=== PATIENT | female | born 1985 | race Caucasian/White ===

== ENCOUNTER 2021-01-13 09:15 | Outpatient (REF) | payer OTHER, SELFPAY ==
[2021-01-13 10:48] LABS: Appearance Urine CLEAR; Color Urine YELLOW; Glucose Urine UA NEG (NEG); Leukocyte Esterase Urine NEG (NEG); Nitrite Urine NEG (NEG); PH 5.5 (5.0-8.0); Urine Blood NEG (NEG); Urine Ketones NEG (NEG); Urine Protein NEG (NEG-TRACE)
== END 2021-01-13 09:16 | disposition home or self-care (01) ==
LOC: HO.LAB 09:15
PROVIDERS: PCP Internal Medicine; Visit Provider Internal Medicine
DX: R30.9 Painful micturition, unspecified (principal)
CPT/HCPCS: 81003

== ENCOUNTER 2021-07-12 09:03 | Outpatient (REF) | payer OTHER, SELFPAY ==
--- NOTE | ~2021-07-12 | XR_ITS ---
EXAMINATION: XR HAND, LEFT CLINICAL INFORMATION: Pain in left hand. COMPARISON: None. TECHNIQUE: PA, lateral, and oblique views of the left hand. FINDINGS: There is subtle lucency seen along the distal end of proximal phalanx 1st digit, likely a prominent vascular groove. No fracture or dislocation seen. There is minimal soft tissue swelling 1st digit at the PIP joint. No bony erosive changes. XR/XR hand LT min 3V IMPRESSION: Prominent vascular groove this length proximal phalanx 1st digit. However, patient has mild soft tissue swelling along the PIP joint. No obvious fracture visualized.
== END 2021-07-12 09:04 | disposition home or self-care (01) ==
LOC: HO.HOSX 09:03
PROVIDERS: Visit Provider Orthopaedic Surgery
DX: R22.32 Localized swelling, mass and lump, left upper limb (principal)
CPT/HCPCS: 73130; 99202

== ENCOUNTER → 2021-08-04 08:05 | Day surgery (SDC) | payer OTHER, SELFPAY ==
[2021-08-04 08:25] VITALS: BMI 31.8
[2021-08-04 08:26] LABS: UPreg QC Valid YES; Urine Pregnancy NEGATIVE (NEGATIVE)
[2021-08-04 08:27] LABS: Glucose, Whole Blood 98 mg/dL (60-115)
[2021-08-04 08:37] VITALS: BP 134/81; PULSE 80; RESP 16; TEMP 36.9; O2SAT 97
--- NOTE | 2021-08-04 09:09 | PC.NURSE ---
decision s/p gum chewing to contemplate surgery with general anesthesia with po bacitra, ultim d/c & reschedule
== END ==
PROVIDERS: Nurse Practitioner; PCP Internal Medicine; Visit Provider Orthopaedic Surgery
DX: R22.32 Localized swelling, mass and lump, left upper limb (principal); Z53.09 Procedure and treatment not carried out because of other contraindication; M79.642 Pain in left hand; E11.9 Type 2 diabetes mellitus without complications; F33.0 Major depressive disorder, recurrent, mild
CPT/HCPCS: 81025; 82947

== ENCOUNTER 2021-08-18 05:44 | Day surgery (SDC) | payer OTHER, SELFPAY ==
[2021-08-11 15:26] VITALS: BMI 33.1
--- NOTE | 2021-08-17 08:53 | HO.ANESPROP2 ---
Documented by User: Swati Riggs NP 08/17/21 08:54 HPI - Anesthesia Eval Consult details Narrative: 36yo F for Left Excision Thumb Mass biopsy PMFSH Active Problems Active Problems: All Active Problems (Updated 06/08/21 @ 17:48 by Sandra Mcclendon MD) Fatigue (Acute) Mass of left hand (Acute) Class 1 obesity with body mass index (BMI) of 33.0 to 33.9 in adult (Acute) Mild recurrent major depression (Acute) Physical exam (Acute) Diabetes mellitus (Acute) Past Medical History Medical History Class 1 obesity with body mass index (BMI) of 33.0 to 33.9 in adult Diabetes mellitus Fatigue Mass of left hand Mild recurrent major depression Physical exam Family History Family History Father Medical history unknown Mother Diabetes Stroke Sister Asthma Maternal Grandmother Diabetes Paternal Grandmother Lung cancer Family/Other Mental health disorder Surgical History Surgical History H/O LEEP History of removal of ovarian cyst Social History Social History (Updated 07/12/21 @ 11:27 by SUSHMA Darby) Housing: Apartment Alcohol intake: never Patient Tobacco Use Status: Current everyday Tobacco user Tobacco use type: Cigarette Cigarettes Per Day: 10 e-Cigarette/Vaping Use: Never Used Second Hand Smoke Exposure: No Are you DNR?: No Advance Directives: No Advance Directives Information Provided: Yes Recently lost weight without trying: No service: No Current occupational status: unemployed 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 Cognitive needs: No Hearing needs: No Vision needs: Yes Meds Allergies Allergy/AdvReac Type Severity Reaction Status Date / Time No Known Allergies Allergy Verified 07/12/21 11:11 Home Medications Medication Instructions Recorded Confirmed Last Taken Type paroxetine HCl 20 mg tablet 20 mg PO QAM 06/08/21 08/04/21 08/04/21 History Exam Exam Date and Time: August 17, 2021 0853 Height,Weight and Vital Signs: Height 5 ft 3 in Weight 84.822 kg Assessment and Plan Assessment Anesthesia Assessment: Chart Reviewed Documented by User: Andrew Joshi MD 08/18/21 08:31 PMFSH Past Medical History Medical History Class 1 obesity with body mass index (BMI) of 33.0 to 33.9 in adult Diabetes mellitus Fatigue Mass of left hand Mild recurrent major depression Physical exam Family History Family History Father Medical history unknown Mother Diabetes Stroke Sister Asthma Maternal Grandmother Diabetes Paternal Grandmother Lung cancer Family/Other Mental health disorder Family history of problems with anesthesia: No Surgical History Surgical History H/O LEEP History of removal of ovarian cyst History of Problems with Anesthesia: No Social History Social History (Updated 07/12/21 @ 11:27 by SUSHMA Darby) Housing: Apartment Alcohol intake: never Patient Tobacco Use Status: Current everyday Tobacco user Tobacco use type: Cigarette Cigarettes Per Day: 10 e-Cigarette/Vaping Use: Never Used Second Hand Smoke Exposure: No Are you DNR?: No Advance Directives: No Advance Directives Information Provided: Yes Recently lost weight without trying: No service: No Current occupational status: unemployed 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 Cognitive needs: No Hearing needs: No Vision needs: Yes Meds Allergies Allergy/AdvReac Type Severity Reaction Status Date / Time No Known Allergies Allergy Verified 07/12/21 11:11 Home Medications Medication Instructions Recorded Confirmed Last Taken Type paroxetine HCl 20 mg tablet 20 mg PO QAM 06/08/21 08/04/21 08/04/21 History Exam Airway Mallampati Class: II TM Dist: >3cm Neck ROM: Full Loose/Missing/Broken Teeth: No Assessment and Plan Final Anesthetic Review Family History of Problems with Anesthesia: No History of Problems with Anesthesia: No NPO: Yes ASA Class: II Final Preanesthetic Review: No Changes in Pt Med Stat, Meds/Allgs Chart Reviewed, Consent Obtained/Reviewed and Anes Risks/Benef Reviewed Patient Risk: Low Procedure Risk: Low Anesthetic Plan Anesthetic Plan: GA Disposition: Standard PACU
[2021-08-18 06:02] VITALS: BP 138/91; PULSE 83; RESP 20; TEMP 36.4; O2SAT 97
[2021-08-18 06:12] LABS: Glucose, Whole Blood 95 mg/dL (60-115)
--- NOTE | 2021-08-18 06:17 | PC.NURSE ---
LS CLEAR PT ON HER MENSES
[2021-08-18 06:26] LABS: UPreg QC Valid YES; Urine Pregnancy NEGATIVE (NEGATIVE)
[2021-08-18] MEDS: Lactated Ringers 1,000 ML 100 ML IVCONT (06:33)
--- NOTE | 2021-08-18 07:41 | MHC.SHP ---
Pre-Procedural Eval Section A Date of Service: 08/18/21 The patient is an INPATIENT: No Changes since office visit: No Cold of Flu in the past 2 weeks, No New Medical Problems, No Changes in Medication and No Patient answered all questions The History & Physical has been completed within 30 days and I have reviewed it.: Yes Section B Chief Complaint: thumb mass Allergies: Allergies Allergy/AdvReac Type Severity Reaction Status Date / Time No Known Allergies Allergy Verified 07/12/21 11:11 Plan I have reviewed the history and physical and performed a pertinent physical examination on my patient. No changes have occurred unless specified.
--- NOTE | 2021-08-18 07:41 | W.PM.OPN ---
Operative Note Operative Note Date of Service: 08/18/21 Narrative: Operative Note Narrative: Preop diagnosis: 1. Left thumb soft tissue mass Postop diagnosis: Same Procedure: 1. Left thumb soft tissue mass excisional biopsy Surgeon: Isa Banuelos MD Anesthesia: General Anesthesia Findings: a aguilar yellow multi lobular soft tissue mass measuring approximately 1.5 cm x 1.8 cm by 6 mm was removed from the volar aspect of the patient's left thumb Implants: none Tourniquet time: Eighteen minutes EBL: 5.0 ml Specimen: left thumb soft tissue mass Drains: None Complications: None Disposition: Brought to the recovery room in stable condition Plan: Follow-up in 10-14 days for wound check, suture removal and to check pathology Indications: The patient is a 36 year old woman with a left thumb soft tissue mass . The risks and benefits of operative treatment, including but not limited to risk of damage to blood vessels, nerves, tendons, infection, recurrence, persistent pain or numbness, incomplete resolution of preoperative symptoms, or need for further surgery were discussed with the patient and they wished to proceed with surgery. Procedure: Once consent was obtained patient was brought back to the operating suite and placed in the operating table in a supine position. . Perioperative antibiotics and anesthesia was administered by the anesthesia team. A tourniquet was applied to the proximal aspect of the left upper extremity and the limb was prepped and draped in a standard surgical fashion. The limb was elevated exsanguinated with Esmarch bandage and the tourniquet inflated to 250 mm of mercury for a total tourniquet time of 18 minutes. a José type incision was made over the volar aspect of the patient's left thumb. The incision was made through the skin to the subcutaneous tissues using a 15. Blade. I then carefully dissected down to the level of the soft tissue mass using tenotomy scissors. the mass was yellow and aguilar in color and multi lobular with a PN appearance consistent with a giant cell tumor. It measured approximately 1.5 cm x 1.8 cm x 6 mm appearing to come from the flexor tendon sheath and involving soft tissues over the volar aspect of the IP joint of the thumb and the pad of the thumb. The soft tissue mass was carefully mobilized from the surrounding soft tissues using tenotomy and iris scissors with care being taken to try and protect the neurovascular structures. The mass was then removed the patient and placed on the back table to be sent for histopathology. At this point the tourniquet was deflated and hemostasis obtained with a brief period of local pressure and bipolar electrocautery. The wound was copiously irrigated with normal saline. The skin edges were reapproximated with 5-0 nylon suture. A digital block was performed by infiltrating with some 1% lidocaine with epinephrine for postop pain control and a sterile dressing was applied. The patient appears to have tolerated the procedure well and with no complications. All digits were well vascularized conclusion of the case.
[2021-08-18 08:58] VITALS: BP 128/60; PULSE 87; RESP 14; TEMP 36.3; O2SAT 99
[2021-08-18 09:03] VITALS: BP 118/58; PULSE 84; RESP 20; O2SAT 99
[2021-08-18 09:08] VITALS: BP 120/69; PULSE 88; RESP 20; O2SAT 98
[2021-08-18 09:13] VITALS: BP 138/74; PULSE 88; RESP 20; O2SAT 99
[2021-08-18 09:28] VITALS: BP 147/90; PULSE 83; RESP 20; TEMP 36.3; O2SAT 99
== END 2021-08-18 09:53 | disposition home or self-care (01) ==
PROVIDERS: Nurse Practitioner; PCP Internal Medicine; Visit Provider Orthopaedic Surgery
PROC: (CPT 26111; principal; 2021-08-18 07:30)
DX: D48.1 Neoplasm of uncertain behavior of connective and other soft tissue (principal); M79.9 Soft tissue disorder, unspecified; E11.9 Type 2 diabetes mellitus without complications; F33.0 Major depressive disorder, recurrent, mild; E66.9 Obesity, unspecified; Z68.33 Body mass index [BMI] 33.0-33.9, adult; Z79.84 Long term (current) use of oral hypoglycemic drugs; F17.210 Nicotine dependence, cigarettes, uncomplicated
CPT/HCPCS: 26111; 81025; 82947; 88305; J0171; J0690; J1885; J2405; J2795; J3010

== ENCOUNTER 2022-03-29 14:37 | Outpatient (REF) | payer OTHER, SELFPAY ==
[2022-03-29 15:52] LABS: Alanine Aminotransferase 15 U/L (0-31); Albumin Level 3.6 g/dL (3.5-5.0); Alkaline Phosphatase 73 U/L (39-117); Anion Gap 15 (12-20); Aspartate Amino Transferase 13 U/L (5-31); Bilirubin Total 0.4 mg/dL (0.0-1.0); Blood Urea Nitrogen 6 mg/dL (9-16); Calcium 9.2 mg/dL (8.4-10.2); Carbon Dioxide 21 mmol/L (22-29); Chloride 106 mmol/L (96-108); Cholesterol 250 mg/dL; Estimated Glomerular Filt Rate > 60; Glucose Fasting 81 mg/dL (60-99); HDL Cholesterol 50 mg/dL; LDL Cholesterol Calculated 159 mg/dl; Potassium 4.3 mmol/L (3.3-5.1); Sodium 138 mmol/L (135-145); Total Protein 6.8 g/dL (6.5-8.0); Triglycerides 207 mg/dL
[2022-03-29 18:32] LABS: Microalbum/Creatinine Ratio Ur 5.8 ug/mg cr
== END 2022-03-29 14:38 | disposition home or self-care (01) ==
LOC: HO.LAB 14:37
PROVIDERS: PCP Internal Medicine; Visit Provider Internal Medicine
DX: E11.9 Type 2 diabetes mellitus without complications (principal); E55.9 Vitamin D deficiency, unspecified; E78.5 Hyperlipidemia, unspecified
CPT/HCPCS: 36415; 80053; 80061; 82043; 82306

== ENCOUNTER 2023-04-06 08:44 | Outpatient (REF) | payer OTHER, SELFPAY ==
[2023-04-06 10:03] LABS: Alanine Aminotransferase 18 U/L (0-31); Alkaline Phosphatase 50 U/L (39-117); Anion Gap 10 (12-20); Aspartate Amino Transferase 12 U/L (5-31); Bilirubin Total 0.3 mg/dL (0.0-1.0); Blood Urea Nitrogen 12 mg/dL (9-16); Calcium 9.3 mg/dL (8.4-10.2); Carbon Dioxide 23 mmol/L (22-29); Chloride 111 mmol/L (96-108); Cholesterol 140 mg/dL (<200); Estimated Glomerular Filt Rate > 60; Glucose Fasting 141 mg/dL (60-99); HDL Cholesterol 48 mg/dL (>40); LDL Cholesterol Calculated 70 mg/dL (<100); Potassium 4.1 mmol/L (3.3-5.1); Sodium 140 mmol/L (135-145); Total Protein 7.1 g/dL (6.5-8.0); Triglycerides 112 mg/dL (<150)
[2023-04-06 10:19] LABS: Vitamin D 25-OH Total 34.7 ng/mL (>30)
== END 2023-04-06 08:45 | disposition home or self-care (01) ==
LOC: HO.LAB 08:44
PROVIDERS: PCP Internal Medicine; Visit Provider Internal Medicine
DX: E78.5 Hyperlipidemia, unspecified (principal); E11.9 Type 2 diabetes mellitus without complications; E55.9 Vitamin D deficiency, unspecified
CPT/HCPCS: 36415; 80053; 80061; 82043; 82306; 82570

== ENCOUNTER 2023-10-23 15:47 | Outpatient (AMB) | payer OTHER, SELFPAY ==
[2023-10-23 15:51] VITALS: BP 126/80; BMI 27.5
--- NOTE | 2023-10-23 15:51 | A.OFFPC_ITS ---
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 Accompanied by: Self / Same As Patient Allergies No Known Allergies Allergy (Verified 10/23/23 16:17) Medication List - Last Reconciled 10/23/23 by Sandra Mcclendon MD blood sugar diagnostic (FreeStyle Test strips) Use 1 test strip once a day lancets (BD Ultra Fine Lancets) test daily metformin 1,000 mg PO BID 90 days nicotine (polacrilex) 4 mg buccal Q2H PRN 30 days Tobacco use date assessed: 10/23/23 Dental Screening Dental Screen Date: 10/23/23 Did you have a dental visit in the last 12 months?: Yes Did you have a dental problem in the last 6 months where you did not have access to dental care?: No Was dental information given to patient?: Patient has dentist HPI HPI Comments History of Present Illness Details This is a 38-year-old female with mild recurrent major depression, diabetes mellitus type 2 and low vitamin-D that comes today for follow-up on her conditions. Depression has been in remission. A1c within goal. On vitamin-D supplements for her low vitamin-D. Denies any chest pain or shortness on breath. Has a cough that started a week ago but is improving. No fever. Tested negative for COVID-19. PFSH Medical History (Updated 10/23/23 @ 17:26 by Sandra Mcclendon MD) Fatigue Mass of left hand Class 1 obesity with body mass index (BMI) of 33.0 to 33.9 in adult Mild recurrent major depression Physical exam Diabetes mellitus Surgical History History of root canal procedure History of removal of ovarian cyst H/O LEEP Family History Father Medical history unknown Mother Diabetes Stroke Sister Asthma Maternal Grandmother Diabetes Paternal Grandmother Lung cancer Family/Other Mental health disorder Social History Housing: Apartment Alcohol intake: never Patient Tobacco Use Status: Former Tobacco user Tobacco use type: Cigarette Cigarettes Per Day: 10 e-Cigarette/Vaping Use: Never Used Second Hand Smoke Exposure: No service: No Current occupational status: unemployed 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 1. Little interest or pleasure in doing things: not at all 2. Feeling down, depressed, or hopeless: not at all 3. Trouble falling or staying asleep, or sleeping too much: not at all 4. Feeling tired or having little energy: not at all 5. Poor appetite or overeating: not at all 6. Feeling bad about yourself - or that you are a failure or have let yourself or your family down: not at all 7. Trouble concentrating on things, such as reading the newspaper or watching television: not at all 8. Moving or speaking so slowly that other people could have noticed. Or the opposite - being so fidgety or restless that you have been moving around a lot more than usual: not at all 9. Thoughts that you would be better off or of hurting yourself in some way : not at all Total score: 0 Depression Screening Interpretation: Negative Depression Screening Done: Yes 86907 - PHQ-9 Billing: Yes Source: Developed by Drs. Romeo Arrington, Suzanne Alcala, Chetan Salomon and colleagues, with an educational megan from [employer]. Thrive Questionnaire Date Thrive assessed: 10/23/23 I am a: Patient What is your living situation today?: I have a steady place to live Within the past 12 months, did the food you bought not last and you didn't have the money to get more?: Never true Within the past 12 months, did you worry whether your food would run out before you got money to buy more?: Never true Do you have trouble paying for medicines?: No Do you have trouble getting transportation to medical appointments?: No Do you have trouble paying your heating and electricity bill?: No Do you have trouble taking care of your child, family member or friend?: No Do you have trouble with day-to-day activities such as bathing, preparing meals, shopping, managing finances, etc.?: No Are you currently unemployed and looking for a job?: No Are you interested in more education?: No Please select the resources that you would like help with: None Currently or been in a relationship where the following occur: No concerns reported THRIVE Score: 0 AUDIT C Alcohol Use Questionnaire (AUDIT-C) 1. How often do you have a drink containing alcohol?: Never Total Score: 0 Score Reviewed/Action Taken: No ANGELO-7 AMB Questionnaire ANGELO-7 Date ANGELO - 7 assessed: 10/23/23 Feeling nervous, anxious, or on edge: 0 = Not at all Not being able to stop or control worryin = Not at all Worrying too much about different things: 0 = Not at all Trouble relaxin = Not at all Being so restless that it is hard to sit still: 0 = Not at all Becoming easily annoyed or irritable: 0 = Not at all Feeling afraid as if something awful might happen: 0 = Not at all Total ANGELO-7 score (0-4 normal; 5-9 mild; 10-14 moderate; 15-21 severe): 0 Source: Developed by Drs. Romeo Arrington, Suzanne Alcala, Chetan Salomon and colleagues, with an educational megan from [employer]. ANGELO-7 Assessment Billing ANGELO-7 Assessment Tool: ANGELO-7 Assessment 13107 Review of Systems Const All systems reviewed & are unremarkable except as noted in HPI and below Card Denies chest pain at rest, Denies chest pain with activity, Denies edema, Denies irregular heart rhythm, Denies claudication, Denies dyspnea, Denies dyspnea on exertion, Denies orthopnea, Denies paroxysmal nocturnal dyspnea and Denies slow heart rate Resp Denies cough, Denies dyspnea and Denies dyspnea on exertion GI Denies abdominal pain, Denies change in bowel habits, Denies excessive flatus, Denies nausea and Denies vomiting Physical exam (Primary Care) Vital Signs: Last Vital Signs BP 126/80 10/23/23 15:51 BMI result Body Mass Index 27.5 Tobacco/Smoking Status: Tobacco use Status Tobacco use date assessed 10/23/23 10/23/23 16:00 Patient Tobacco Use Status Former Tobacco user 10/23/23 16:00 Tobacco use type Cigarette 10/23/23 16:00 e-Cigarette/Vaping Use Never Used 10/23/23 16:00 PHQ-9: PHQ-9 Score PHQ-9: Total score 0 10/23/23 17:42 Depression Screening Interpretation: Negative Thrive Assessment: Date of Thrive Assessment Date Thrive assessed 10/23/23 10/23/23 16:00 Currently or been in a relationship where the following occur: No concerns reported Resp Effort & Inspection: normal respiratory effort Auscultation: clear to auscultation bilaterally Cardio Jugular venous distension: no JVD Rate: regular rate Rhythm: regular rhythm Heart sounds: S1 normal heart sound present and S2 normal heart sound present Extrem General: Yes full ROM Results AMB Hemoglobin A1c AMB Hemoglobin A1c 6.2 % Last Edit by JAMARI Marcus on 10/23/23 16:0 2 Results Reviewed Results Reviewed: Laboratory Last Values Hgb A1c (Clinic) 6.2 % (4.0-6.0) H 10/23/23 15:51 Assessment and Plan Assessment & Plan (1) Diabetes mellitus: Code(s): E11.9 - Type 2 diabetes mellitus without complications Qualifiers: Diabetes mellitus complication status: without complication 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 A1c goal is equal or less than 7%. (2) Mild recurrent major depression: Code(s): F33.0 - Major depressive disorder, recurrent, mild Plan: In remission. (3) Hypovitaminosis D: Code(s): E55.9 - Vitamin D deficiency, unspecified Plan: Continue vitamin-D supplements. Orders: Orders AMB Hemoglobin A1c Today E11.9 - Type 2 diabetes mellitus without complications Lipid Panel 4 Months E78.5 - Hyperlipidemia, unspecified Microalbumin, Random (w Creat) 4 Months R80.9 - Proteinuria, unspecified Comprehensive [place]. 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
== END 2023-10-23 16:28 | disposition home or self-care (01) ==
PROVIDERS: PCP Internal Medicine; Visit Provider Internal Medicine
DX: E11.9 Type 2 diabetes mellitus without complications (principal); F33.0 Major depressive disorder, recurrent, mild; E55.9 Vitamin D deficiency, unspecified

== ENCOUNTER → 2023-10-23 15:47 | Outpatient (BNVA) | payer OTHER, SELFPAY | PROVIDERS: PCP Internal Medicine; Visit Provider Internal Medicine | DX: E11.9 Type 2 diabetes mellitus without complications (principal); F33.0 Major depressive disorder, recurrent, mild; E55.9 Vitamin D deficiency, unspecified; Z79.84 Long term (current) use of oral hypoglycemic drugs | CPT/HCPCS: 83036; 96127; 99212 ==

== ENCOUNTER 2024-04-23 16:13 | Outpatient (AMB) | payer OTHER, SELFPAY ==
--- NOTE | 2024-04-23 16:16 | A.OFFPC_ITS ---
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 Accompanied by: Self / Same As Patient Allergies No Known Allergies Allergy (Verified 04/23/24 16:22) Medication List - Last Reconciled 04/23/24 by Sandra Mcclendon MD blood sugar diagnostic (FreeStyle Test strips) Use 1 test strip once a day lancets (BD Ultra Fine Lancets) test daily metformin 1,000 mg PO BID 90 days nicotine (polacrilex) 4 mg buccal Q2H PRN 30 days Tobacco use date assessed: 04/23/24 Dental Screening Dental Screen Date: 04/23/24 Did you have a dental visit in the last 12 months?: Yes Did you have a dental problem in the last 6 months where you did not have access to dental care?: No Was dental information given to patient?: Patient has dentist HPI HPI Comments History of Present Illness Details The patient is a 39-year-old female presenting for a physical examination. She previously had an elevated hemoglobin A1c of 6.2, which improved to 5.9, indicating better control of her diabetes. She is on metformin therapy, reporting satisfactory results with recent blood tests, and does not currently report diabetes-related symptoms. Nicotine dependence is evident, with the patient noting relapse after initially attempting to stop smoking using nicotine gum. She is interested in quitting again. The patient has a surgical history that includes delivery, wisdom tooth extraction, ovarian cyst removal, and lipoma removal. Her family history is significant for diabetes and stroke on her mother's side and cervical stenosis and knee surgeries on her father's side. Her mother is otherwise in good health currently, and familial diabetes is well-managed. - Discussion about ordering a mammogram as the patient has not had one. - Pap smear completed in 2022 with resul ts indicating HPV-negative status. - Tetanus vaccination status reviewed; n ext vaccine due in 2028. - Encouraged smoking cessation and discu ssed nicotine replacement therapy options. - Monitoring of hemoglobin A1c levels as part of diabetes management. [facility] Medical History Fatigue Mass of left hand Class 1 obesity with body mass index (BMI) of 33.0 to 33.9 in adult Mild recurrent major depression Physical exam Diabetes mellitus Surgical History History of wisdom tooth extraction History of root canal procedure History of removal of ovarian cyst H/O LEEP Family History Father Medical history unknown Mother Diabetes Stroke Sister Asthma Maternal Grandmother Diabetes Paternal Grandmother Lung cancer Family/Other Mental health disorder Social History (Updated 04/23/24 @ 16:40 by Sandra Mcclendon MD) Housing: Apartment Alcohol intake: never Patient Tobacco Use Status: Current everyday Tobacco user Tobacco use type: Cigarette Cigarettes Per Day: 10 e-Cigarette/Vaping Use: Never Used Second Hand Smoke Exposure: No service: No Current occupational status: unemployed 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 1. Little interest or pleasure in doing things: not at all 2. Feeling down, depressed, or hopeless: not at all 3. Trouble falling or staying asleep, or sleeping too much: several days 4. Feeling tired or having little energy: several days 5. Poor appetite or overeating: several days 6. Feeling bad about yourself - or that you are a failure or have let yourself or your family down: not at all 7. Trouble concentrating on things, such as reading the newspaper or watching television: not at all 8. Moving or speaking so slowly that other people could have noticed. Or the opposite - being so fidgety or restless that you have been moving around a lot more than usual: not at all 9. Thoughts that you would be better off or of hurting yourself in some way: not at all Total score: 3 Depression Screening Interpretation: Positive Depression Screening Follow-up: Existing condition and Follow-up Visit Requested Depression Screening Done: Yes 33577 - PHQ-9 Billing: Yes Source: Developed by Drs. Romeo Arrington, Suzanne Alcala, Chetan Salomon and colleagues, with an educational megan from [employer]. Thrive Questionnaire Date Thrive assessed: 04/23/24 I am a: Patient What is your living situation today?: I have a steady place to live Within the past 12 months, did the food you bought not last and you didn't have the money to get more?: Never true Within the past 12 months, did you worry whether your food would run out before you got money to buy more?: Never true Do you have trouble paying for medicines?: No Do you have trouble getting transportation to medical appointments?: No Do you have trouble paying your heating and electricity bill?: No Do you have trouble taking care of your child, family member or friend?: No Do you have trouble with day-to-day activities such as bathing, preparing meals, shopping, managing finances, etc.?: No Are you currently unemployed and looking for a job?: I choose not to answer this question Are you interested in more education?: I choose not to answer this question Please select the resources that you would like help with: None Currently or been in a relationship where the following occur: I choose not to answer THRIVE Score: 0 AUDIT C Alcohol Use Questionnaire (AUDIT-C) 1. How often do you have a drink containing alcohol?: Never Total Score: 0 Score Reviewed/Action Taken: No ANGELO-7 AMB Questionnaire ANGELO-7 Date ANGELO - 7 assessed: 04/23/24 Feeling nervous, anxious, or on edge: 0 = Not at all Not being able to stop or control worryin = Not at all Worrying too much about different things: 0 = Not at all Trouble relaxin = Not at all Being so restless that it is hard to sit still: 0 = Not at all Becoming easily annoyed or irritable: 0 = Not at all Feeling afraid as if something awful might happen: 0 = Not at all Total ANGELO-7 score (0-4 normal; 5-9 mild; 10-14 moderate; 15-21 severe): 0 Source: Developed by Drs. Romeo Arrington, Suzanne Alcala, Chetan Salomon and colleagues, with an educational megan from [employer]. ANGELO-7 Assessment Billing ANGELO-7 Assessment Tool: ANGELO-7 Assessment 16423 Review of Systems Const All systems reviewed & are unremarkable except as noted in HPI and below Card Denies chest pain at rest, Denies chest pain with activity, Denies edema, Denies irregular heart rhythm, Denies claudication, Denies orthopnea, Denies paroxysmal nocturnal dyspnea and Denies slow heart rate Physical exam (Primary Care) Vital Signs: Last Vital Signs BP 126/80 04/23/24 16:17 BMI result Body Mass Index 29.0 Tobacco/Smoking Status: Tobacco use Status Tobacco use date assessed 04/23/24 04/23/24 16:25 Patient Tobacco Use Status Current everyday Tobacco 04/23/24 16:40 Tobacco use type Cigarette 04/23/24 16:40 e-Cigarette/Vaping Use Never Used 04/23/24 16:40 PHQ-9: PHQ-9 Score PHQ-9: Total score 3 04/23/24 16:50 Depression Screening Interpretation: Positive Depression Screening Follow-up: Existing condition and Follow-up Visit Requested Thrive Assessment: Date of Thrive Assessment Date Thrive assessed 04/23/24 04/23/24 16:18 Currently or been in a relationship where the following occur: I choose not to answer HENMT Head: Yes normal to inspection, Yes normocephalic and Yes atraumatic Ears: external ears normal Eyes General: appearance normal, both eyes and all related structures Eyelids: Yes eyelids normal Conjunctivae: conjunctivae normal Neck Neck: Yes normal visual inspection and Yes supple Resp Effort & Inspection: normal respiratory effort Auscultation: clear to auscultation bilaterally Cardio Jugular venous distension: no JVD Rate: regular rate Rhythm: regular rhythm Heart sounds: S1 normal heart sound present and S2 normal heart sound present GI Inspection: Yes normal to inspection Palpation (GI): Soft to palpation and nontender Auscultation: normal bowel sounds Skin General skin exam: no rashes or lesions noted Neuro General: no focal motor deficits Extrem General: Yes full ROM Psych Appearance: grossly normal Results AMB Hemoglobin A1c AMB Hemoglobin A1c 5.9 % Last Edit by JAMRAI Marcus on 04/23/24 16:2 8 Results Reviewed Results Reviewed: Laboratory Last Values Hgb A1c (Clinic) 5.9 % (4.0-6.0) 04/23/24 16:26 Coding Level of Care Code Est Pt Prev Care 40-64y(78556) Diagnoses Physical exam Z00.00 Type 2 diabetes mellitus without complication, without long-term current use of insulin E11.9 Diabetes mellitus type: type 2 Diabetes mellitus intermediate insulin use: without ad terminal makeup operator use Diabetes mellitus complication status: without complication Mild recurrent major depression F33.0 Additional Codes ANGELO-7 Assessment Billing - ANGELO-7 Assessment Tool: ANGELO-7 Assessment 78484 ([id number]) PHQ-9 - 80068 - PHQ-9 Billing: Yes ([id number]) Time Spent (min) 31 Assessment & Plan Assessment & Plan (1) Physical exam: Code(s): Z00.00 - Encounter for general adult medical examination without abnormal findings Category: Medical (2) Diabetes mellitus: Code(s): E11.9 - Type 2 diabetes mellitus without complications Category: Medical Qualifiers: Diabetes mellitus type: type 2 Diabetes mellitus intermediate insulin use: without ad terminal makeup operator use Diabetes mellitus complication status: without complication Qualified Code(s): E11.9 - Type 2 diabetes mellitus without complications (3) Mild recurrent major depression: Code(s): F33.0 - Major depressive disorder, recurrent, mild Category: Medical Plan Monitoring of vitamin D levels will continue given history. Smoking cessation support was emphasized, and follow-up blood tests will be scheduled to evaluate overall health status further.: Patient was informed and verbally consented to the use of an ambient scribe for clinic note documentation during this visit. During the visit, I explained to the patient that her diabetes control has improved, as evidenced by the lowered hemoglobin A1c. We discussed maintaining this control and the importance of regular blood work. For her nicotine dependence, I reviewed available nicotine replacement therapy options, emphasizing the need to quit smoking due to her known health risks. We also talked about the need for a mammogram and reviewed her immunization status to ensure up-to-date care. Given her previous vitamin D deficiency, rechecking these levels was highlighted. Follow-up visits were recommended to monitor her diabetes, smoking cessation efforts, and preventive screenings. Orders: Orders MM tomosynthesis screening BI Today Z12.31 - Encounter for screening mammogram for malignant neoplasm of breast Lipid Panel Today E78.5 - Hyperlipidemia, unspecified Microalbumin, Random (w Creat) Today R80.9 - Proteinuria, unspecified Comprehensive [place]. Panel Fast Today E11.9 - Type 2 diabetes mellitus without complications Vitamin D 25-OH Total Today E55.9 - Vitamin D deficiency, unspecified AMB Hemoglobin A1c Today E11.9 - Type 2 diabetes mellitus without complications Medications: Refilled nicotine (polacrilex) 4 mg buccal Q2H PRN 200 ea 11RF nicotine cravings 30 days nicotine (polacrilex) 4 mg buccal Q2H 30 days PRN 100 ea 11RF nicotine cravings Patient Instructions: - Continue taking metformin as prescribed to manage diabetes. - Utilize prescribed nicotine replacement therapy to support smoking cessation. - Schedule and attend a mammogram for breast cancer screening. - Maintain up-to-date vaccinations, with the next tetanus shot due in 2028. - Monitor vitamin D levels and take supplements if necessary. - Report any new symptoms or concerns promptly. - Schedule regular follow-up appointments to monitor overall health and preventive care.
[2024-04-23 16:17] VITALS: BP 126/80; BMI 29.0
--- OUTSIDE RECORDS SUMMARY | 2024-04-23 17:47 | XMS_ITS | Encounter Summary ---
Author Organization 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 Name Role Phone Unavailable Primary Care Provider Unavailabl e Reason for Visit * Reason Comments Routine Cleaning Dental Exam Perio chart x-rays Encounter Details Date Type Department Care Team (Late st Contact Info) Description 04/09/2024 11:00 AM EST Office Visit [facility] ADULT D[facility]AL [address], [place] [phone] Tiara Galvez [address] [place] [address] Dental staining (Primary Dx); Dental calculus Social History Tobacco Use Types Packs/Day Years Used Date Smoking Tobacco: Every Day Cigarettes Smokeless Tobacco: Never Alcohol Use Standard Drinks/Week Comments Defer 0 (1 standard drink = 0.6 oz pur e alcohol) Comments Unknown Sex and Gender Information Value Date Recorded Sex Assigned at Female 05/08/2022 8:47 AM EDT Legal Sex Female 8:44 AM EDT Gender Identity Female 05/08/2022 8:47 AM EDT Sexual Orientation Choose not to disclose 2022 8:47 AM EDT documented as of this encounter Last Filed Vital Signs Vital Sign Reading Time Taken Comments Blood Pressure 116/72 04/09/2024 10:57 AM EST Pulse - - Temperature - - Respiratory Rate - - Oxygen Saturation - - Inhaled Oxygen Concentration - - Weight - - Height - - Body Mass Index - - documented in this encounter Progress Notes * Tiara Galvez - 04/09/2024 11:00 AM EST Appoint at 11 am for P. Exam, x-rays, Prophy, erio chart Patient ID: Erum Delgado is a 39 y.o. female. Time Out: Timeout Date: 04/09/24, Timeout Time: 1105 (P. exam, x-rays, perio chart, prophy) Location: [facility] Tooth: Maxilla and Mandible Procedure: Exam, X-rays, Prophylaxis, and Perio chart Verified the above with patient, volunteer assistant, and provider. Confirmed via patient's chart, intraorally and by radiographs. Business Services Associate: not applicable Medical Hx: Vitals: Blood pressure 116/72. Medications, Med Hx reviewed with patient and updated in chart. Treatment Provided Dental procedures in this visit D1110 - PROPHYLAXIS - ADULT (Completed) Service provider: Tiara Galvez Billsara provider: Griselda Abraham DDS D0274 - BITEWINGS - 4 RADIOGRAPHIC IMAGES (Completed) Service provider: Tiara Galvez Billsara provider: Griselda Abraham DDS D0220 - INTRAORAL - PERIAPICAL FIRST RADIOGRAPHIC IMAGE (Completed) Service provider: Tiara Galvez Billing provider: Griselda Abraham DDS D0230 - INTRAORAL - PERIAPICAL EACH ADDITIONAL RADIOGRAPHIC IMAGE (Completed) Service provider: Tiara Galvez Billing provider: Griselda Abraham DDS D1330 - ORAL HYGIENE INSTRUCTIONS (Completed) Service provider: Tiara Galvez Billing provider: Griselda Abraham DDS D9450 - CASE PRESENTATION, DETAILED AND EXTENSIVE TREATMENT PLANNING (Completed) Service provider: Tiara Galvez Billing provider: Griselda Abraham DDS D0230 - INTRAORAL - PERIAPICAL EACH ADDITIONAL RADIOGRAPHIC IMAGE (Completed) Service provider: Tiara Galvez Billing provider: Griselda Abraham DDS Instruments Used: Ultrasonic Scalers, Hand Scalers, and Prophy angle Fluoride: N/A Oral Cancer Screening: No lesions Head/Neck Exam: No Lesions Calculus: Light Plaque: Light Stain: Heavy and Generalized, black Bleeding: Light and Moderate Gingiva: pink OH: Fair Perio Chart: Completed Oral hygiene instructions provided to patient including brushing technique and flossing. Recommendations: [place] two times daily, modified ferguson technique, Floss daily, Electric toothbrush, Soft bristle toothbrush, [place] Tongue, Anti-sensitivity toothpaste Recall Frequency: 6 mo NV: Dr. Pino for restorations Hygienist: Tiara Galvez RDH Cosigned by Griselda Abraham DDS at 04/09/2024 1:19 PM EST Associated attestation - Griselda Abraham DDS - 04/09/2024 1:19 PM EST I have reviewed the documentation and dental procedures made by the rendering provider, Tiara Galvez RDH , and approve their chart entries for this visit. Griselda Abraham DDS * Griselda Abraham DDS - 04/09/2024 11:00 AM EST Dental procedures in this visit D1110 - PROPHYLAXIS - ADULT (Completed) Service provider: Tiara Galvez Billing provider: Griselda Abraham DDS D0274 - BITEWINGS - 4 RADIOGRAPHIC IMAGES (Completed) Service provider: Tiara Galvez Billing provider: Griselda Abraham DDS D0220 - INTRAORAL - PERIAPICAL FIRST RADIOGRAPHIC IMAGE (Completed) Service provider: Tiara Galvez Billing provider: Griselda Abraham DDS D0230 - INTRAORAL - PERIAPICAL EACH ADDITIONAL RADIOGRAPHIC IMAGE (Completed) Service provider: Tiara Galvez Billing provider: Griselda Abraham DDS D1330 - ORAL HYGIENE INSTRUCTIONS (Completed) Service provider: Tiara Galvez Billing provider: Griselda Abraham DDS D9450 - CASE PRESENTATION, DETAILED AND EXTENSIVE TREATMENT PLANNING (Completed) Service provider: Tiara Galvez Billing provider: Griselda Abraham DDS D0230 - INTRAORAL - PERIAPICAL EACH ADDITIONAL RADIOGRAPHIC IMAGE (Completed) Service provider: Tiara Galvez Billing provider: Griselda Abraham DDS Patient ID: Erum Delgado is a 39 y.o. female. Time Out: Timeout Date: 04/09/24, Timeout Time: 1105 (P. exam, x-rays, perio chart, prophy) Location: [facility] Tooth: Maxilla and Mandible Procedure: Exam, X-rays, and Prophylaxis Verified the above with patient, volunteer assistant, and provider. Confirmed via patient's chart, intraorally and by radiographs. Business Services Associate: not applicable Chief Complaint Patient presents with Routine Cleaning Dental Exam Perio chart x-rays Medical Hx: Vitals: Blood pressure 116/72. Past Medical History: Diagnosis Date Diabetes mellitus ([facility]) Medications: Outpatient Encounter Medications as of 04/09/2024 Medication Sig Dispense Refill metFORMIN (Glucophage) 1000 MG tablet Take 1,000 mg by mouth. nicotine polacrilex (Nicorette) 4 MG gum Chew 4 mg if needed for smoking cessation. atorvastatin (Lipitor) 20 MG tablet Take 20 mg by mouth at bedtime. (Patient not taking: Reported on 03/18/2024) cholecalciferol (Vitamin D-3) 50 MCG (1999 UT) capsule (Patient not taking: Reported on 03/18/2024) medroxyPROGESTERone (Depo-Provera) 150 MG/ML injection INJECT 1 MILLILITER (150 MG) BY INTRAMUSCULAR ROUTE EVERY 3 MONTHS FOR 90 DAYS (Patient not taking: Reported on 03/18/2024) Sodium Fluoride (PreviDent 5000 Plus) 1.1 % cream Apply 1 mg to teeth 3 times daily. (Patient not taking: Reported on 03/18/2024) 1 g 3 No facility-administered encounter medications on file as of 04/09/2024. Objective HPI Soft Tissue Exam No findings documented this visit Head and Neck Exam: Lymph Nodes, Lips, Palate, Buccal Mucosa, Floor of Mouth, Tongue, Tonsils, Alveolar Ridges, Oropharynx, Salivary Ducts, and Vestibules - no significant findings observed OCS: negative Dental Exam Radiographic Interpretation: Associated radiographs for today's visit were reviewed and finding(s) were discussed with the patient. Findings include: caries, slight plaque and calclusus, fair OH, missing teeth. Hard Tissue Exam: Decay noted - see charting and treatment plan Perio Dx: fair OH Reference tooth chart for additional findings. Oral Cancer Risk: Low Risk Oral Hygiene Instructions: [place] two times daily, modified ferguson technique, Floss daily, Soft bristle toothbrush, [place] Tongue Caries Risk Assessment: High- two or more risk factors Assessment/Plan radha Patient tolerated procedure well, all questions answered and expressed understanding. Dismissed in good condition. NV: radha Home Health Aide: Tiara Galvez Dentist: Griselda Abraham DDS documented in this encounter Plan of Treatment Upcoming Encounters Date Type Department Care Team (Late st Contact Info) Description 05/09/2024 9:00 AM EDT Office Visit [facility] [address] [place] [address] Griselda Abraham DDS [address] [place] [address] 10/15/2024 10:00 AM EDT Office Visit [facility] [address] [place] [address] Tiara Galvez [address] [place] [address] Scheduled Orders Name Type Priority Associated Diagnoses Orde r Schedule 3 MOD 3 MOD RESIN-BASED COMPOSITE - 3 SURF, POSTERIOR Dental Routine [address] arting 04/09/2024 ORAL HYGIENE INSTRUCTIONS Dental Routine 1 Occurrences starting 04/09/2024 CASE PRESENTATION, DETAILED AND EXTENSIVE TREATMENT PLANNING Dental Routine 1 Occurrences starting 04/09/2024 documented as of this encounter Procedures Procedure Name Priority Date/Time Associated Diagnosis Comments PROPHYLAXIS - ADULT Routine 04/09/2024 1 1:00 AM EST Dental staining Dental calculus ORAL HYGIENE INSTRUCTIONS Routine 04/09/2024 11:00 AM EST Dental staining Dental calculus INTRAORAL - PERIAPICAL FIRST RADIOGRAPHIC IMAGE Routine 04/09/2024 11:00 AM EST Dental staining Dental calculus INTRAORAL - PERIAPICAL EACH ADDITIONAL RADIOGRAPHIC IMAGE Routine 04/09/2024 11:00 AM EST INTRAORAL - PERIAPICAL EACH ADDITIONAL RADIOGRAPHIC IMAGE Routine 04/09/2024 11:00 AM EST Dental staining Dental calculus CASE PRESENTATION, DETAILED AND EXTENSIVE TREATMENT PLANNING Routine 04/09/2024 11:00 AM EST Dental staining Dental calculus BITEWINGS - 4 RADIOGRAPHIC IMAGES Routine 04/09/2024 11:00 AM EST Dental staining Dental calculus 18 EXTRACTION Routine 04/09/2024 12:00 AM EST 2 EXTRACTION Routine 04/09/2024 12:00 AM EST documented in this encounter Visit Diagnoses Diagnosis Dental staining- Primary Dental calculus Accretions on teeth documented in this encounter
--- OUTSIDE RECORDS SUMMARY | 2024-04-23 17:47 | XMS_ITS | Clinical Summary ---
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 3 Active medroxyPROGEST ERone (Depo-Provera) 150 MG/ML injection INJECT 1 MILLILITER (150 MG) BY INTRAMUSCULAR ROUTE EVERY 3 MONTHS FOR 90 DAYS 3 Active cholecalcifero l (Vitamin D-3) 50 MCG (1999) capsule 3 Active atorvastatin (Lipitor) 20 MG tablet Take 20 mg by mouth at bedtime. 3 Active Sodium Fluoride (PreviDent 5000 Plus) 1.1 % cream Apply 1 mg to teeth 3 times daily. 1 g 3 4 Active Additional Information Patient not taking.Reported on 03/18/2024 nicotine polacrilex (Nicorette) 4 MG gum Chew 4 mg if needed for smoking cessation. Active Active Problems Problem Noted Date Diagnosed Date Active asthma 06/18/2023 Advanced maternal age in multigravida 06/18/2023 Bacteremia 06/18/2023 Class 1 obesity 06/18/2023 Current tobacco use 06/18/2023 History of gestational diabetes 06/18/2023 History of loop electrical excision procedure (L EEP) 06/18/2023 History of depression 06/18/2023 Refusal of blood transfusion s as patient is [facility] 06/18/2023 Encounters Date Type Department Care Team Description 04/09/2024 11:00 AM EST Office Visit [facility] [address] [place] [address] Tiara Galvez Dental staining (Primary Dx); Dental calculus 03/18/2024 9:30 AM EST Office Visit [facility] [address] [place] [address] Romano-Pino, Griselda, DDS Dental caries (Primary Dx) 02/18/2024 2:00 PM EST Office Visit [facility] [address] [facility] [address] [facility] [place] [address] Romano-Pino, Griselda, DDS Full coverage crown needed for tooth at risk for fracture (Primary Dx); Dental caries 02/12/2024 2:00 PM EST Office Visit [facility] [address] [place] [address] Romano-Pino, Griselda, DDS Full coverage crown needed for tooth at risk for fracture (Primary Dx) 01/28/2024 11:00 AM EST Office Visit [facility] [address] [place] [address] Romano-Pino, Griselda, DDS Full coverage crown needed for root canal-treated tooth (Primary Dx) from Last 3 Months Immunizations Name Administration Dates Next Due MMR 08/10/2018 Social History Tobacco Use Types Packs/Day Years Used Date Smoking Tobacco: Every Day Cigarettes Smokeless Tobacco: Never Tobacco Cessation:Ready to Q uit: Not Asked; Counseling Given: Not Answered Alcohol Use Standard Drinks/Week Comments Defer 0 (1 standard drink = 0.6 oz pur e alcohol) Comments Unknown Sex and Gender Information Value Date Recorded Sex Assigned at Female 05/08/2022 8:47 AM EDT Legal Sex Female 8:44 AM EDT Gender Identity Female 05/08/2022 8:47 AM EDT Sexual Orientation Choose not to disclose 2022 8:47 AM EDT Last Filed Vital Signs Vital Sign Reading Time Taken Comments Blood Pressure 116/72 04/09/2024 10:57 AM EST Pulse - - Temperature - - Respiratory Rate - - Oxygen Saturation - - Inhaled Oxygen Concentration - - Weight - - Height - - Body Mass Index - - Plan of Treatment Upcoming Encounters Date Type Department Care Team (Late st Contact Info) Description 05/09/2024 9:00 AM EDT Office Visit [facility] [address] [place] [address] Leigh Griselda, DDS [address] [place], [place] [phone] 10/15/2024 10:00 AM EDT Office Visit [facility] [address] [place], [place] [id number] Srinivasan Galvezaris [address] [place] [address] Health Maintenance Due Date Last Done Comments Depression Screening 1983 HIV Screening 1983 Lipid Panel 1983 SDOH Screening 1983 Alcohol/Substance Use Screening 1995 Family Planning (PISQ) 1998 Hepatitis C Screening 2001 Hepatitis B Vaccines (1 of 3 - 19+ 3-dose series) 2002 Pneumococcal Vaccine: Pediatrics (0 to 5 Years) and At-Risk Patients (6 to 49) Years) (1 of 2 - PCV) 2002 Pap Smear 02/27/2004 Cervical Cancer Screening 2013 HPV/Cotest 2013 DTaP/Tdap/Td Vaccines (2 - Tdap) 10/06/2021 10/07/2011 Mammogram 2023 COVID-19 Vaccine ( - 2023-2 5 season) 2023 07/20/2020, 06/29/2020 Influenza Vaccine (#1) 2023 Dental Oral Exam 12/20/2023 06/18/2023 Dental Prophylaxis 10/11/2024 04/09/2024, 06/20/2023 Tobacco Screening 03/18/2025 03/18/2024 Dental X-Ray: Bitewings 04/10/2025 04/10/19, 06/18/2023, 05/08/2022 Dental X-Ray: Full Mouth 06/18/2026 06/18/2023 Zoster Vaccines (1 of 2) 2033 RSV Patients and Patients Aged 60 years or older (1 - 1-dose 75+ series) 2058 HIB Vaccines Aged Out No longer eligi ble based on patient's age to complete this topic HPV Vaccines Aged Out No longer eligi ble based on patient's age to complete this topic Hepatitis A Vaccines Aged Out No long er eligible based on patient's age to complete this topic IPV Vaccines Aged Out No longer eligi ble based on patient's age to complete this topic Meningococcal Vaccine Aged Out No isaias madelyn eligible based on patient's age to complete this topic RSV under 20 months Aged Out No longe r eligible based on patient's age to complete this topic Rotavirus Vaccines Aged Out No longer eligible based on patient's age to complete this topic Procedures Procedure Name Priority Date/Time Associated Diagnosis Comments INTRAORAL - PERIAPICAL EACH ADDITIONAL RADIOGRAPHIC IMAGE Routine 04/09/2024 11:00 AM EST CASE PRESENTATION, DETAILED AND EXTENSIVE TREATMENT PLANNING Routine 04/09/2024 11:00 AM EST Dental staining Dental calculus ORAL HYGIENE INSTRUCTIONS Routine 2024 11:00 AM EST Dental staining Dental calculus INTRAORAL - PERIAPICAL EACH ADDITIONAL RADIOGRAPHIC IMAGE Routine 04/09/2024 11:00 AM EST Dental staining Dental calculus INTRAORAL - PERIAPICAL FIRST RADIOGRAPHIC IMAGE Routine 04/09/2024 11:00 AM EST Dental staining Dental calculus BITEWINGS - 4 RADIOGRAPHIC IMAGES Routine 04/09/2024 11:00 AM EST Dental staining Dental calculus PROPHYLAXIS - ADULT Routine 04/09/2024 1 1:00 AM EST Dental staining Dental calculus 18 EXTRACTION Routine 04/09/2024 12:00 AM EST 2 EXTRACTION Routine 04/09/2024 12:00 AM EST CASE PRESENTATION, DETAILED AND EXTENSIVE TREATMENT PLANNING Routine 03/18/2024 9:30 AM EST Dental caries 4 MOD RESIN-BASED COMPOSITE - 3 SURF, POSTERIOR Routine 03/18/2024 9:30 AM EST Dental caries 5 DO RESIN-BASED COMPOSITE - 2 SURF, POSTERIOR Routine 03/18/2024 9:30 AM EST Dental caries CASE PRESENTATION, DETAILED AND EXTENSIVE TREATMENT PLANNING Routine 02/18/2024 2:00 PM EST Full coverage crown needed for tooth at risk for fracture Dental caries INTRAORAL - PERIAPICAL EACH ADDITIONAL RADIOGRAPHIC IMAGE Routine 02/18/2024 2:00 PM EST Full coverage crown needed for tooth at risk for fracture Dental caries INTRAORAL - PERIAPICAL FIRST RADIOGRAPHIC IMAGE Routine 02/18/2024 2:00 PM EST Full coverage crown needed for tooth at risk for fracture Dental caries 9 CROWN - PORCELAIN/CERAMIC Routine 02/18/2024 2:00 PM EST Full coverage crown needed for tooth at risk for fracture Dental caries 8 CROWN - PORCELAIN/CERAMIC Routine 02/18/2024 2:00 PM EST Full coverage crown needed for tooth at risk for fracture Dental caries 7 CROWN - PORCELAIN/CERAMIC Routine 02/18/2024 2:00 PM EST Full coverage crown needed for tooth at risk for fracture Dental caries 10 CROWN - PORCELAIN/CERAMIC Routine 02/18/2024 2:00 PM EST Full coverage crown needed for tooth at risk for fracture Dental caries NO CHARGE PROCEDURE Routine 02/12/2024 2 :00 PM EST Full coverage crown needed for tooth at risk for fracture NO CHARGE PROCEDURE Routine 01/28/2024 1 1:00 AM EST Full coverage crown needed for root canal-treated tooth INTRAORAL - COMPLETE SERIES OF RADIOGRAPHIC IMAGES Routine 06/18/2023 3:00 PM EDT Encounter for dental examination Dental caries Dental calculus Dental abscess COMPREHENSIVE ORAL EVALUATION - NEW OR ESTABLISHED PATIENT Routine 06/18/2023 3:00 PM EDT Encounter for dental examination Dental caries Dental calculus Dental abscess from Last 3 Months or Most Recently Relevant to Health Maintenance Insurance [facility] MEDICAID STAND ADULT
== END 2024-04-23 16:51 | disposition home or self-care (01) ==
LOC: HO.HMCH 16:14
PROVIDERS: PCP Internal Medicine; Visit Provider Internal Medicine
DX: Z00.00 Encounter for general adult medical examination without abnormal findings (principal); E11.9 Type 2 diabetes mellitus without complications; F33.0 Major depressive disorder, recurrent, mild

== ENCOUNTER → 2024-04-23 16:13 | Outpatient (BNVA) | payer OTHER, SELFPAY | PROVIDERS: PCP Internal Medicine; Visit Provider Internal Medicine | DX: Z00.00 Encounter for general adult medical examination without abnormal findings (principal); E11.9 Type 2 diabetes mellitus without complications; F33.0 Major depressive disorder, recurrent, mild | CPT/HCPCS: 83036; 96127; 99396 ==

== ENCOUNTER 2024-06-27 09:13 | Outpatient (REF) | payer OTHER, SELFPAY ==
--- OUTSIDE RECORDS SUMMARY | 2024-06-27 09:28 | XMS_ITS | Clinical Summary ---
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 Name Role Phone Unavailable Primary Care Provider [...] of blood transfusion s as patient is [employer] 06/18/2023 Encounters Date Type Department Care Team Description 04/09/2024 11:00 AM EST Office Visit [facility] [address] [place] [address] Tiara Galvez Dental staining (Primary Dx); Dental calculus from Last 3 Months Immunizations Immunization Administration Dates Next Due MMR 08/10/2018 Social [...] Care Team (Late st Contact Info) Description 10/15/2024 10:00 AM EDT Office Visit [facility] [address] [place] [address] Leonor, Tiara [address] [place] [address] Health Maintenance Due Date Last Done Comments Depression Screening 1983 HIV Screening 1983 Lipid Panel 1983 SDOH Screening 1983 Disability Screening 1983 Alcohol/Substance Use Screening 1995 Family [...] Tdap) 10/06/2021 10/07/2011 Mammogram 2023 COVID-19 Vaccine (3 - 2023-2 5 season) 2023 07/20/2020, 06/29/2020 [...] patient's age to complete this topic Meningococcal B Vaccine Aged Out No l onger eligible based on patient's age to complete [...] 2 EXTRACTION Routine 04/09/2024 12:00 AM EST INTRAORAL - COMPLETE SERIES OF RADIOGRAPHIC IMAGES Routine 06/18/2023 3:00 PM EDT Encounter for dental examination Dental caries Dental calculus Dental abscess COMPREHENSIVE ORAL EVALUATION - NEW OR ESTABLISHED PATIENT Routine 06/18/2023 3:00 PM EDT Encounter for dental examination Dental caries Dental calculus Dental abscess from Last 3 Months or Most Recently Relevant to Health Maintenance Insurance [facility] MEDICAID STAND ADULT
== END 2024-06-27 09:14 | disposition home or self-care (01) ==
LOC: HO.MAMMO 09:13
PROVIDERS: PCP Internal Medicine; Visit Provider Internal Medicine
DX: Z12.31 Encounter for screening mammogram for malignant neoplasm of breast (principal)
CPT/HCPCS: 77063; 77067

== ENCOUNTER → 2024-06-27 09:15 | Outpatient (BNV) | payer OTHER, SELFPAY | PROVIDERS: PCP Internal Medicine; Visit Provider Internal Medicine | DX: Z12.31 Encounter for screening mammogram for malignant neoplasm of breast (principal) | CPT/HCPCS: 77063; 77067 ==

== ENCOUNTER 2024-08-12 17:01 | Outpatient (AMB) | payer OTHER, SELFPAY ==
--- NOTE | 2024-08-12 17:16 | A.OFFPC_ITS ---
Vital Signs 08/12/24 17:17 Height 5 ft 3 in Weight 171 lb BMI 30.3 BP 110/80 Blood Pressure Location Lt brachial Position Sitting Intake Visit Reasons: 3 Month F/U Intake Note: Patient here for a 3 month follow up Station Helper Required: No Accompanied by: Self / Same As Patient Allergies No Known Allergies Allergy (Verified 08/12/24 17:21) Medication List - Last Reconciled 08/12/24 by Sandra Mcclendon MD blood sugar diagnostic (FreeStyle Test strips) Use 1 test strip once a day lancets (BD Ultra Fine Lancets) test daily metformin 1,000 mg PO BID 90 days Tobacco use date assessed: 04/23/24 Dental Screening Dental Screen Date: 08/12/24 Did you have a dental visit in the last 12 months?: Yes Did you have a dental problem in the last 6 months where you did not have access to dental care?: No Was dental information given to patient?: Patient has dentist HPI HPI Comments History of Present Illness Details This is a 39-year-old female with diabetes mellitus type 2 that comes today for follow-up on her conditions. Currently using metformin. A1c of 6.3% today. Labs were order to check her LDL which should be less than 70. Blood pressure is within goal. She is obese with a BMI of 30.3 and was advised to do diet and exercise. She is a smoker and said that nicotine gum helps with cravings. [facility] Medical History (Updated 08/12/24 @ 20:55 by Sandra Mcclendon MD) Fatigue Mass of left hand Class 1 obesity with body mass index (BMI) of 33.0 to 33.9 in adult Mild recurrent major depression Physical exam Diabetes mellitus Surgical History History of wisdom tooth extraction History of root canal procedure History of removal of ovarian cyst H/O LEEP Family History Father Medical history unknown Mother Diabetes Stroke Sister Asthma Maternal Grandmother Diabetes Paternal Grandmother Lung cancer Family/Other Mental health disorder Social History Housing: Apartment Alcohol intake: never Patient Tobacco Use Status: Current everyday Tobacco user Tobacco use type: Cigarette Cigarettes Per Day: 10 e-Cigarette/Vaping Use: Never Used Second Hand Smoke Exposure: No service: No Current occupational status: unemployed 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 Cognitive needs: No Hearing needs: No Vision needs: Yes Questionnaire Thrive Questionnaire Date Thrive assessed: 03/04/24 I am a: Patient What is your living situation today?: I have a steady place to live Within the past 12 months, did the food you bought not last and you didn't have the money to get more?: Never true Within the past 12 months, did you worry whether your food would run out before you got money to buy more?: Never true Do you have trouble paying for medicines?: No Do you have trouble getting transportation to medical appointments?: No Do you have trouble paying your heating and electricity bill?: No Do you have trouble taking care of your child, family member or friend?: No Do you have trouble with day-to-day activities such as bathing, preparing meals, shopping, managing finances, etc.?: No Are you currently unemployed and looking for a job?: I choose not to answer this question Are you interested in more education?: I choose not to answer this question Please select the resources that you would like help with: None Currently or been in a relationship where the following occur: I choose not to answer THRIVE Score: 0 ANGELO-7 AMB Questionnaire ANGELO-7 Date ANGELO - 7 assessed: 04/23/24 Source: Developed by Drs. Romeo Arrington, Suzanne Alcala, Chetan Salomon and colleagues, with an educational megan from [employer]. Review of Systems Const All systems reviewed & are unremarkable except as noted in HPI and below Card Denies chest pain at rest, Denies chest pain with activity, Denies edema, Denies irregular heart rhythm, Denies claudication, Denies dyspnea, Denies dyspnea on exertion, Denies orthopnea, Denies paroxysmal nocturnal dyspnea and Denies slow heart rate Resp Denies cough, Denies dyspnea and Denies dyspnea on exertion GI Denies abdominal pain, Denies change in bowel habits, Denies excessive flatus, Denies nausea and Denies vomiting Denies urinary incontinence, Denies urinary hesitancy and Denies urinary urgency Musc Denies abnormal gait, Denies atrophy, Denies deformity and Denies limited range of motion Skin/Breast Denies bleeding lesions, Denies changing lesions and Denies rash Neuro Denies abnormal gait, Denies behavioral changes and Denies lack of coordination Psych Denies behavioral changes Endo Denies cold intolerance Physical exam (Primary Care) Vital Signs: Last Vital Signs BP 110/80 08/12/24 17:17 BMI result Body Mass Index 30.3 Tobacco/Smoking Status: Tobacco use Status Tobacco use date assessed 04/23/24 08/12/24 17:19 Patient Tobacco Use Status Current everyday Tobacco 08/12/24 17:19 Tobacco use type Cigarette 08/12/24 17:19 e-Cigarette/Vaping Use Never Used 08/12/24 17:19 Thrive Assessment: Date of Thrive Assessment Date Thrive assessed 03/04/24 08/12/24 17:19 Currently or been in a relationship where the following occur: I choose not to answer Resp Effort & Inspection: normal respiratory effort Auscultation: clear to auscultation bilaterally Cardio Jugular venous distension: no JVD Rate: regular rate Rhythm: regular rhythm Heart sounds: S1 normal heart sound present and S2 normal heart sound present Extrem General: Yes full ROM Results AMB Hemoglobin A1c AMB Hemoglobin A1c 6.3 % Last Edit by JAMARI Marcus on 08/12/24 17:2 8 Results Reviewed Results Reviewed: Laboratory Last Values Hgb A1c (Clinic) 6.3 % (4.0-6.0) H 08/12/24 17:20 Coding Level of Care Code Est Pt Level 4 (34508) Complex EM visit Add On G2211 Diagnoses Type 2 diabetes mellitus without complication, without long-term current use of insulin E11.9 Diabetes mellitus type: type 2 Diabetes mellitus rodent exterminator insulin use: without rodent exterminator use Diabetes mellitus complication status: without complication Hyperlipidemia LDL goal <70 E78.5 Smoker F17.200 Obesity (BMI 30-39.9) E66.9 Time Spent (min) 20 Assessment & Plan Assessment & Plan (1) Diabetes mellitus: Code(s): E11.9 - Type 2 diabetes mellitus without complications Category: Medical Qualifiers: Diabetes mellitus type: type 2 Diabetes mellitus half-way insulin use: without rodent exterminator use Diabetes mellitus complication status: without complication Qualified Code(s): E11.9 - Type 2 diabetes mellitus without complications (2) Hyperlipidemia LDL goal <70: Code(s): E78.5 - Hyperlipidemia, unspecified Category: Medical (3) Smoker: Code(s): F17.200 - Nicotine dependence, unspecified, uncomplicated Category: Social Hx (4) Obesity (BMI 30-39.9): Code(s): E66.9 - Obesity, unspecified Category: Medical Plan Continue current meds. Repeat lipid panel and other labs. Was advised to quit smoking. Start diet and exercise to reach BMI goal less than 30. Orders: Orders AMB Hemoglobin A1c Today E11.9 - Type 2 diabetes mellitus without complications Lipid Panel Today E78.5 - Hyperlipidemia, unspecified Microalbumin, Random (w Creat) Today R80.9 - Proteinuria, unspecified Comprehensive [place]. Panel Fast Today E11.9 - Type 2 diabetes mellitus without complications Medications: New nicotine (polacrilex) 4 mg buccal Q2H PRN 100 ea 1RF nicotine cravings 30 days
[2024-08-12 17:17] VITALS: BP 110/80; BMI 30.3
== END 2024-08-12 17:29 | disposition home or self-care (01) ==
LOC: HO.HMCH 17:01
PROVIDERS: PCP Internal Medicine; Visit Provider Internal Medicine
DX: E11.9 Type 2 diabetes mellitus without complications (principal); E66.9 Obesity, unspecified; Z68.30 Body mass index [BMI] 30.0-30.9, adult; E78.5 Hyperlipidemia, unspecified; F17.200 Nicotine dependence, unspecified, uncomplicated

== ENCOUNTER → 2024-08-12 17:01 | Outpatient (BNVA) | payer OTHER, SELFPAY | PROVIDERS: PCP Internal Medicine; Visit Provider Internal Medicine | DX: E11.9 Type 2 diabetes mellitus without complications (principal); E78.5 Hyperlipidemia, unspecified; E66.9 Obesity, unspecified; Z68.30 Body mass index [BMI] 30.0-30.9, adult; F17.210 Nicotine dependence, cigarettes, uncomplicated | CPT/HCPCS: 83036; 99212 ==

== ENCOUNTER 2024-12-30 16:44 | Outpatient (AMB) | payer OTHER, SELFPAY ==
[2024-12-30 17:02] VITALS: BP 136/78; PULSE 101; RESP 18; O2SAT 98; BMI 30.6
--- NOTE | 2024-12-30 17:02 | A.OFFPC_ITS ---
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 Accompanied by: Self / Same As Patient Allergies No Known Allergies Allergy (Verified 12/30/24 17:18) Medication List - Last Reconciled 12/30/24 by Sandra Mcclendon MD blood sugar diagnostic (FreeStyle Test strips) Use 1 test strip once a day lancets (BD Ultra Fine Lancets) test daily metformin 1,000 mg PO BID 90 days nicotine (polacrilex) 4 mg buccal Q2H PRN 30 days Tobacco use date assessed: 12/30/24 Dental Screening Dental Screen Date: 12/30/24 Did you have a dental visit in the last 12 months?: Yes Did you have a dental problem in the last 6 months where you did not have access to dental care?: No Was dental information given to patient?: Patient has dentist HPI HPI Comments History of Present Illness Details The patient is a 39 year old individual presenting for a follow-up visit for chronic condition management and medication refills. The patient has a history of type 2 diabetes mellitus and takes metformin 1000 mg twice daily. The patient's last hemoglobin A1c was in August and was reportedly not abnormal. A1c is 6.2% the for good blood glucose control. The patient is a current smoker but acknowledges the need to quit. The patient uses nicotine gum as needed. There are no known drug allergies. [facility] Medical History Fatigue Mass of left hand Class 1 obesity with body mass index (BMI) of 33.0 to 33.9 in adult Mild recurrent major depression Physical exam Diabetes mellitus Surgical History History of wisdom tooth extraction History of root canal procedure History of removal of ovarian cyst H/O LEEP Family History Father Medical history unknown Mother Diabetes Stroke Sister Asthma Maternal Grandmother Diabetes Paternal Grandmother Lung cancer Family/Other Mental health disorder Social History Housing: Apartment Alcohol intake: never Patient Tobacco Use Status: Current everyday Tobacco user Tobacco use type: Cigarette Cigarettes Per Day: 10 e-Cigarette/Vaping Use: Never Used Second Hand Smoke Exposure: No service: No Current occupational status: unemployed 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 1. Little interest or pleasure in doing things: not at all 2. Feeling down, depressed, or hopeless: not at all 3. Trouble falling or staying asleep, or sleeping too much: several days 4. Feeling tired or having little energy: several days 5. Poor appetite or overeating: several days 6. Feeling bad about yourself - or that you are a failure or have let yourself or your family down: not at all 7. Trouble concentrating on things, such as reading the newspaper or watching television: not at all 8. Moving or speaking so slowly that other people could have noticed. Or the opposite - being so fidgety or restless that you have been moving around a lot more than usual: not at all 9. Thoughts that you would be better off or of hurting yourself in some way: not at all Total score: 3 Depression Screening Interpretation: Positive Depression Screening Follow-up: Existing condition and Follow-up Visit Requested Depression Screening Done: Yes 27557 - PHQ-9 Billing: Yes Source: Developed by Drs. Romeo Arrington, Suzanne Alcala, Chetan Salomon and colleagues, with an educational megan from [employer]. Thrive Questionnaire Date Thrive assessed: 12/30/24 I am a: Patient What is your living situation today?: I have a steady place to live Within the past 12 months, did the food you bought not last and you didn't have the money to get more?: Never true Within the past 12 months, did you worry whether your food would run out before you got money to buy more?: Never true Do you have trouble paying for medicines?: No Do you have trouble getting transportation to medical appointments?: No Do you have trouble paying your heating and electricity bill?: No Do you have trouble taking care of your child, family member or friend?: No Do you have trouble with day-to-day activities such as bathing, preparing meals, shopping, managing finances, etc.?: No Are you currently unemployed and looking for a job?: I choose not to answer this question Are you interested in more education?: I choose not to answer this question Please select the resources that you would like help with: None Currently or been in a relationship where the following occur: I choose not to answer THRIVE Score: 0 ANGELO-7 AMB Questionnaire ANGELO-7 Date ANGELO - 7 assessed: 04/23/24 Feeling nervous, anxious, or on edge: 0 = Not at all Not being able to stop or control worryin = Not at all Worrying too much about different things: 0 = Not at all Trouble relaxin = Not at all Being so restless that it is hard to sit still: 0 = Not at all Becoming easily annoyed or irritable: 0 = Not at all Feeling afraid as if something awful might happen: 0 = Not at all Total ANGELO-7 score (0-4 normal; 5-9 mild; 10-14 moderate; 15-21 severe): 0 Source: Developed by Drs. Romeo Arrington, Suzanne Alcala, Chetan Salomon and colleagues, with an educational megan from [employer]. ANGELO-7 Assessment Billing ANGELO-7 Assessment Tool: ANGELO-7 Assessment 60569 Review of Systems Const All systems reviewed & are unremarkable except as noted in HPI and below Card Denies chest pain at rest, Denies chest pain with activity, Denies edema, Denies irregular heart rhythm, Denies claudication, Denies dyspnea, Denies dyspnea on exertion, Denies orthopnea, Denies paroxysmal nocturnal dyspnea and Denies slow heart rate Resp Denies cough, Denies dyspnea and Denies dyspnea on exertion GI Denies abdominal pain, Denies change in bowel habits, Denies excessive flatus, Denies nausea and Denies vomiting Physical exam (Primary Care) Vital Signs: Last Vital Signs Pulse 101 H 12/30/24 17:02 Resp 18 12/30/24 17:02 BP 136/78 12/30/24 17:02 Pulse Ox 98 12/30/24 17:02 Oxygen Delivery Method Room Air 12/30/24 17:02 BMI result Body Mass Index 30.6 BMI Assessment/Plan discussion: High BMI High, discussed plan: lifestyle, weight reduction, dietary and physical activity Tobacco/Smoking Status: Tobacco use Status Tobacco use date assessed 12/30/24 12/30/24 17:10 Patient Tobacco Use Status Current everyday Tobacco 12/30/24 17:10 Tobacco use type Cigarette 12/30/24 17:10 e-Cigarette/Vaping Use Never Used 12/30/24 17:10 PHQ-9: PHQ-9 Score PHQ-9: Total score 3 12/31/24 08:25 Depression Screening Interpretation: Positive Depression Screening Follow-up: Existing condition and Follow-up Visit Requested Thrive Assessment: Date of Thrive Assessment Date Thrive assessed 12/30/24 12/30/24 17:10 Currently or been in a relationship where the following occur: I choose not to answer Resp Effort & Inspection: normal respiratory effort Auscultation: clear to auscultation bilaterally Cardio Jugular venous distension: no JVD Rate: regular rate Rhythm: regular rhythm Heart sounds: S1 normal heart sound present and S2 normal heart sound present Extrem General: Yes full ROM Results Reviewed Results Reviewed: Laboratory Last Values Hgb A1c (Clinic) 6.2 % (4.0-6.0) H 12/30/24 08:27 Coding Level of Care Code Est Pt Level 3 (68186) Diagnoses Type 2 diabetes mellitus without complication, without long-term current use of insulin E11.9 Diabetes mellitus type: type 2 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: without intermediate use Diabetes mellitus complication status: without complication Mild recurrent major depression F33.0 Smoker F17.200 Additional Codes ANGELO-7 Assessment Billing - ANGELO-7 Assessment Tool: ANGELO-7 Assessment 29705 ([id number]) PHQ-9 - 49023 - PHQ-9 Billing: Yes ([id number]) Time Spent (min) 19 Assessment & Plan Assessment & Plan (1) Diabetes mellitus: Code(s): E11.9 - Type 2 diabetes mellitus without complications Category: Medical Qualifiers: Diabetes mellitus type: type 2 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 Type 2 Diabetes Mellitus The plan includes checking a hemoglobin A1c today as the last one was in August. The patient will continue metformin 1000 mg twice daily, and a prescription refill will be sent to the pharmacy. 2. Tobacco Use The patient continues to smoke but expresses a desire to quit. A prescription refill for nicotine gum will be sent to the pharmacy. Orders: Orders AMB Hemoglobin A1c Today Z13.9 - Encounter for screening, unspecified Medications: Refilled metformin 1,000 mg PO BID 180 tabs 3RF 90 days nicotine (polacrilex) 4 mg buccal Q2H PRN 100 ea 1RF nicotine cravings 30 days
--- OUTSIDE RECORDS SUMMARY | 2024-12-30 19:36 | XMS_ITS | Clinical Summary ---
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 Name Role Phone Unavailable Primary Care Provider [...] of blood transfusion s as patient is [employer] 06/18/2023 Immunizations Immunization Administration Dates Next Due MMR [...] Care Team (Late st Contact Info) Description 04/24/2025 10:15 AM EDT Office Visit [facility] [address] [place] [address] Leonor, [address] [place] [address] Health Maintenance Due Date Last Done Comments Depression Screening 1983 HIV Screening 1983 Lipid Panel 1983 SDOH Screening 1983 Disability Screening 1983 Alcohol/Substance Use Screening 1995 Family Planning (PISQ) 1998 HPV Vaccines (1 - 3-dose series) 1998 Hepatitis C Screening 2001 Hepatitis B Vaccines (1 of 3 - 19+ 3-dose series) 2002 Pneumococcal Vaccine: Pediatrics (0 to 5 Years) and At-Risk Patients (6 to 49) Years (1 of 2 - PCV) 2002 Pap Smear 02/27/2004 Cervical Cancer Screening 2013 HPV/Cotest 2013 DTaP/Tdap/Td Vaccines (2 - Tdap) 10/06/2021 10/07/2011 Mammogram 2023 Dental Oral Exam 12/20/2023 06/18/2023 COVID-19 Vaccine (3 - 2024-2 6 season) 2024 07/20/2020, 06/29/2020 Influenza Vaccine (#1) 2024 Dental Prophylaxis 10/11/2024 04/09/2024, 06/20/2023 Tobacco Screening [...] 1:00 AM EST Dental staining Dental calculus BITEWINGS - 4 RADIOGRAPHIC IMAGES Routine 04/09/2024 11:00 AM EST Dental staining Dental calculus INTRAORAL - COMPLETE SERIES OF RADIOGRAPHIC IMAGES Routine 06/18/2023 3:00 PM EDT Encounter for dental examination Dental caries Dental calculus Dental abscess COMPREHENSIVE ORAL EVALUATION - NEW OR ESTABLISHED PATIENT Routine 06/18/2023 3:00 PM EDT Encounter for dental examination Dental caries Dental calculus Dental abscess from Last 3 Months or Most Recently Relevant to Health Maintenance Insurance [facility] MEDICAID STAND ADULT
== END 2024-12-30 17:27 | disposition home or self-care (01) ==
LOC: HO.HMCH 16:45
PROVIDERS: PCP Internal Medicine; Visit Provider Internal Medicine
DX: E11.9 Type 2 diabetes mellitus without complications (principal); F33.0 Major depressive disorder, recurrent, mild; F17.200 Nicotine dependence, unspecified, uncomplicated; Z13.9 Encounter for screening, unspecified

== ENCOUNTER → 2024-12-30 16:44 | Outpatient (BNVA) | payer OTHER, SELFPAY | PROVIDERS: PCP Internal Medicine; Visit Provider Internal Medicine | DX: E11.9 Type 2 diabetes mellitus without complications (principal); F33.0 Major depressive disorder, recurrent, mild; F17.210 Nicotine dependence, cigarettes, uncomplicated; Z79.84 Long term (current) use of oral hypoglycemic drugs | CPT/HCPCS: 83036; 96127; 99212 ==